=== PATIENT | female | born 1985 | race Caucasian/White ===

== ENCOUNTER 2024-11-17 18:01 | Emergency (ER) | payer OTHER, SELFPAY ==
--- NOTE | 2024-11-17 18:45 | RAD REPORT ---
EXAMINATION: CT HEAD WITHOUT CONTRAST CLINICAL INDICATION: Female, 39 years old.PAIN TECHNIQUE: Axial CT images from the skull base to the vertex without intravenous contrast. Coronal an d sagittal reformatted images were created from the data set. One or more of the following dose reduction techniques were used: Automated exposure control, adjustment of the mA and/or kV according to patient size, and/or iterative reconstruction. Unless otherwise specified, incidental findings do not require dedicated imaging follow-up. [id number]. COMPARISON: No prior exam. FINDINGS: INTRACRANIAL: No acute intracranial hemorrhage. No hydrocephalus. No mass effect or midline shift. No significant white matter disease. VASCULATURE: No visualized abnormalities in the arteries or dural venous sinuses. SCALP/SKULL: No significant soft tissue or osseous abnormalities. SINUSES: Mucous retention cysts in the maxillary sinuses. IMPRESSION: No acute intracranial abnormality.
[2024-11-17] MEDS ORDERED: dexAMETHasone 10 MG/ML VIAL ONE (19:57)
[2024-11-17] MEDS ORDERED: NA CHLORIDE 0.9% 1,000 ML ONE (19:58)
[2024-11-17] MEDS ORDERED: KETOROLAC 30 MG/ML INJ ONE (19:58)
[2024-11-17] MEDS ORDERED: DIPHENHYDRAMINE 50 MG/ML VIAL ONE (19:58)
[2024-11-17] MEDS ORDERED: METOCLOPRAMIDE 10 MG/2mL INJ ONE (19:58)
[2024-11-17] MEDS ORDERED: NA CHLORIDE 0.9% 50 ML ONE (19:59)
[2024-11-17 21:14] LABS: Anion Gap 9.8 mEq/L (5.0-15.0); Potassium 3.8 mEq/L (3.5-5.1)
[2024-11-17 22:00] LABS: Absolute Basophils 0.1 K/uL (0-0.5); Absolute Eosinophils 0.2 K/uL (0-0.5); Absolute Lymphocytes (CBC) 2.2 K/uL (0.7-4.9); Absolute Monocytes 0.3 K/uL (0.1-1.3); Absolute Neutrophil 4.3 K/uL (1.8-8.0); Basophils % 0.9 % (0-1.3); Eosinophils % 2.6 % (0-4.4); Hematocrit 38.6 % (36.0-45.0); Hemoglobin 12.9 g/dL (12.0-15.0); Lymphocytes % 31.6 % (15.3-44.8); MCH 30.8 pg (27.0-35.0); MCHC 33.3 g/dL (32.0-36.0); MCV 92.5 fL (80-100); MPV 7.6 fL (7.6-11.3); Monocytes % 3.8 % (3.3-12.3); Neutrophils % 61.1 % (41.7-73.7); Nucleated Red Blood Cells % 0.1 % (0-0); Platelets 321 thou/uL (152-406); RBC Red Blood Cell Count 4.18 M/uL (3.86-4.86); Red Cell Distribution Width 13.3 % (12.1-15.2)
--- NOTE | 2024-11-17 22:14 | EDPHYS ---
Physician Documentation [facility] Name: Ruth Gordon Age: 39 yrs Sex: Female : 1985 Arrival Date: 11/17/2024 Time: 18:01 Bed 8 Private MD: ED Physician Cecil Segundo HPI: 11/17 22:50 This 39 yrs old Female presents to ER via Ambulatory with complaints of Headache, Flu kb Symptoms. 22:50 Patient is a 39-year-old female who presents for headache that started 2 days ago. kb States she had cough, congestion, fever, body aches and chills last week, believed to be the flu. States all symptoms resolved except for the cough and then the headache presented. States the headache has been constant for 2 days. No aggravating or alleviating factors. No nausea or vomiting.. 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 Flu vaccine is not up to date. - Infectious Disease History:: Denies. - Social history:: Smoking status: Reported history of juuling and/or vaping. ROS: 22:49 Constitutional: As per HPI kb Exam: 22:49 Constitutional: This is a well developed, well nourished patient who is awake, alert, kb and in no acute distress. Head/Face: Normocephalic, atraumatic. Eyes: Pupils equal round and reactive to light, extra-ocular motions intact. Lids and lashes normal. Conjunctiva and sclera are non-icteric and not injected. Cornea within normal limits. Periorbital areas with no swelling, redness, or edema. ENT: Moist Mucous membranes Cardiovascular: Regular rate Respiratory: Respirations even and unlabored. No increased work of breathing. Talking in full sentences Skin: Warm, dry with normal turgor. Normal color. MS/ Extremity: Pulses equal, no cyanosis. Neurovascular intact. Full, normal range of motion. Neuro: Awake and alert, GCS 15, oriented to person, place, time, and situation. Vital Signs: 18:09 BP 186 / 98; Pulse 67; Resp 16; Temp 97.9(O); Pulse Ox 98% ; Weight 127.01 kg; Height 5 ap3 ft. 6 in. ; Pain 8/10; 20:48 BP 137 / 84; Pulse 60; Resp 17; Temp 98.3(O); Pulse Ox 99% on R/A; mt4 21:36 BP 122 / 70; Pulse 70; Resp 18; Pulse Ox 99% ; br2 21:38 BP 122 / 70; Pulse 57; Resp 18; Pulse Ox 97% on R/A; br2 22:24 BP 145 / 77; Pulse 54; Resp 18; Pulse Ox 98% ; br2 18:09 Body Mass Index 45.19 (127.01 kg, 167.64 cm) ap3 18:09 Pain Scale: Adult ap3 [place] Coma Score: 20:52 Eye Response: spontaneous(4). Motor Response: obeys commands(6). Verbal Response: mt4 oriented(5). Total: 15. 22:49 Eye Response: spontaneous(4). Motor Response: obeys commands(6). Verbal Response: kb oriented(5). Total: 15. MDM: 18:05 Medical Screening Exam initiated kb 22:49 Differential diagnosis: intracerebral hemorrhage, migraine, sinusitis. Data reviewed: kb vital signs, nurses notes. I considered the following discharge prescriptions or medication management in the emergency department I discussed and recommended Over The Counter medications, Antibiotics: At this time antibiotics are not recommended, Antivirals: At this time, antivirals are not recommended. Counseling: I had a detailed discussion with the patient and/or guardian regarding the historical points, exam findings, and any diagnostic results supporting the discharge/admit diagnosis, lab results, radiology results, the need for outpatient follow up, a family practitioner, to return to the emergency department if symptoms worsen or persist or if there are any questions or concerns that arise at home. Response to treatment: the patient's symptoms have resolved after treatment. 11/17 18:12 Order name: CBC with Diff; Complete Time: 22:12 kb 11/17 18:12 Order name: Basic Metabolic Panel; Complete Time: 21:16 kb 11/17 18:12 Order name: CT Head Brain wo Cont; Complete Time: 18:46 kb 11/17 18:12 Order name: IV Start; Complete Time: 21:24 kb 11/17 20:20 Order name: Labs - recollect needed: recollect green top ; Complete Time: 20:51 kmf 11/17 21:04 Order name: Labs - recollect needed: recollect purple top ; Complete Time: 21:39 kmf Administered Medications: 20:45 Drug: Ketorolac IVP 15 mg IVP once Route: IVP; Site: right antecubital; mt4 21:45 Follow up: Response: No adverse reaction br2 20:46 Drug: NS 0.9% IV 1000 ml IV at 1000 ml once; to be given as a bolus over 60 minutes mt4 Route: IV; Rate: 1000 ml; Site: right antecubital; 21:45 Follow up: Response: No adverse reaction; IV Status: Completed infusion; IV Intake: br2 1000ml 20:46 Drug: metoCLOPramide IVP 10 mg IVP once; over 1 to 2 minutes Route: IVP; Site: right mt4 antecubital; 21:45 Follow up: Response: No adverse reaction br2 20:46 Drug: diphenhydrAMINE IVP 12.5 mg IVP once Route: IVP; Site: right antecubital; mt4 21:14 Follow up: Response: No adverse reaction br2 20:48 Drug: Dexamethasone IM 10 mg IM once Route: IM; Site: right deltoid; mt4 21:15 Follow up: Response: No adverse reaction br2 Disposition: 11/18 08:56 Co-signature as Attending Physician, Cecil Segundo MD I reviewed the patient's care rt provided by the Advanced Practice Provider and agree with the diagnosis and treatment plan. Disposition Summary: 11/17/24 22:13 Discharge Ordered Notes: Location: Home kb Condition: Stable kb Diagnosis - Acute upper respiratory infection, unspecified kb - Headache kb Followup: kb - With: Emergency Department - When: As needed - Reason: Worsening of condition Followup: kb - With: Private Physician - When: 2 - 3 days - Reason: Recheck today's complaints, Continuance of care, Re-evaluation by your physician Discharge Instructions: - Discharge Summary Sheet kb - Upper Respiratory Infection, Adult, [id number] kb - General Headache Without Cause, [id number] kb Forms: - Medication Reconciliation Form kb - Antibiotic Education kb - Prescription Opioid Use kb - Patient Portal Instructions kb - Leadership Thank You Letter kb Signatures: Dispatcher [employer] EDMS Henry Muriel, MACHINE PIE MAKER-C MACHINE PIE MAKER-Ckb Jocelyne Orozco, RN RN ap3 Cecil Segundo MD MD rt Forrester, Kelsey [facility] Mariana Pickens, RN RN mt4 Sunitha Martinez RN br2 Corrections: (The following items were deleted from the chart) 11/17 18:13 18:12 Head Brain Wo Cont+CT.RAD.BRZ ordered. EDMS EDMS 18:13 18:13 CBC+H.LAB.BRZ ordered. EDMS EDMS 18:13 18:13 BASIC METABOLIC PANEL+C.LAB.BRZ ordered. EDMS EDMS 22:49 22:48 Constitutional: As per HPI Eyes: Negative for injury, pain, redness, and kb discharge, ENT: Negative for injury, pain, and discharge, Cardiovascular: Negative for chest pain, palpitations, and edema, Respiratory: Negative for shortness of breath, cough, wheezing, and pleuritic chest pain, MS/Extremity: Negative for injury and deformity, Skin: Negative for injury, rash, and discoloration, Neuro: Negative for headache, weakness, numbness, tingling, and seizure, kb
--- NOTE | 2024-11-17 22:14 | ER ---
Nurse's Notes [facility] Name: Ruth Gordon Age: 39 yrs Sex: Female : 1985 Arrival Date: 11/17/2024 Time: 18:01 Bed 8 Private MD: Diagnosis: Acute upper respiratory infection, unspecified;Headache Presentation: 11/17 18:09 Chief complaint: Patient states: she has had cough and congestion for approx one week ap3 but for the last two days she has had a headache that she can't get rid of. Coronavirus screen: At this time, the client does not indicate any symptoms associated with coronavirus-19. Ebola Screen: No symptoms or risks identified at this time. Initial Sepsis Screen: Does the patient meet any 2 criteria? No. Patient's initial sepsis screen is negative. Does the patient have a suspected source of infection? No. Patient's initial sepsis screen is negative. Risk Assessment: Do you want to hurt yourself or someone else? Patient reports no desire to harm self or others. Onset of symptoms was November 10, 2024. 18:09 Method Of Arrival: Ambulatory ap3 18:09 Acuity: ALY 3 ap3 Triage Assessment: 18:13 Headache History: Denies prior headaches. General: Appears uncomfortable, Behavior is ap3 cooperative, appropriate for age. Pain: Complains of pain in forehead Pain currently is 8 out of 10 on a pain scale. Pain began 2-3 days ago. Neuro: Level of Consciousness is awake, alert, obeys commands, Oriented to person, place, time, situation, Appropriate for age Gait is steady, Speech is normal, Facial symmetry appears normal, Reports headache. Cardiovascular: Patient's skin is warm and dry. Respiratory: Airway is patent Respiratory effort is even, unlabored, Respiratory pattern is regular, symmetrical. 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 Flu vaccine is not up to date. - Infectious Disease History:: Denies. - Social history:: Smoking status: Reported history of juuling and/or vaping. Screenin:14 [facility] ED Fall Risk Assessment (Adult) History of falling in the last 3 months, ap3 including since admission No falls in past 3 months (0 pts) Confusion or Disorientation No (0 pts) Intoxicated or Sedated No (0 pts) Impaired Gait No (0 pts) Mobility Assist Device Used No (0 pt) Altered Elimination No (0 pt) Score/Fall Risk Level 0 - 2 = Low Risk Oriented to surroundings, Maintained a safe environment, Educated pt \T\ family on fall prevention, incl call for assistance when getting out of bed, Assessed \T\ reinforced patient's understanding of fall precautions, Hourly rounding (assess needs \T\ fall precautionary measures) done, Used ambulatory aids as needed (educated on \T\ assisted with), Used gait belt as appropriate. Abuse screen: Denies threats or abuse. Nutritional screening: No deficits noted. Tuberculosis screening: No symptoms or risk factors identified. 20:52 Exposure risk/Travel Screening: None identified. mt4 Assessment: 20:52 General: Appears in no apparent distress. comfortable, obese, Behavior is calm, mt4 cooperative, appropriate for age. Pain: Complains of pain in face Pain currently is 6 out of 10 on a pain scale. Quality of pain is described as aching, Pain began 1 day ago. Neuro: Level of Consciousness is awake, alert, obeys commands, Oriented to person, place, time, situation, Appropriate for age Hand Or Machine Paster are equal bilaterally Moves all extremities. Gait is steady, Speech is normal, Facial symmetry appears normal. Cardiovascular: Capillary refill < 3 seconds. Respiratory: Reports cough that is productive, Airway is patent Respiratory effort is even, unlabored, Respiratory pattern is regular, symmetrical, Breath sounds are clear bilaterally. GI: Abdomen is non-distended, obese. : Denies burning with urination. Musculoskeletal: Range of motion: intact in all extremities. 22:24 Reassessment: Patient and/or family updated on plan of care and expected duration. Pain mt4 level reassessed. Patient states feeling better. Patient states symptoms have improved. General:. Vital Signs: 18:09 BP 186 / 98; Pulse 67; Resp 16; Temp 97.9(O); Pulse Ox 98% ; Weight 127.01 kg; Height 5 ap3 ft. 6 in. ; Pain 8/10; 20:48 BP 137 / 84; Pulse 60; Resp 17; Temp 98.3(O); Pulse Ox 99% on R/A; mt4 21:36 BP 122 / 70; Pulse 70; Resp 18; Pulse Ox 99% ; br2 21:38 BP 122 / 70; Pulse 57; Resp 18; Pulse Ox 97% on R/A; br2 22:24 BP 145 / 77; Pulse 54; Resp 18; Pulse Ox 98% ; br2 18:09 Body Mass Index 45.19 (127.01 kg, 167.64 cm) ap3 18:09 Pain Scale: Adult ap3 [place] Coma Score: 20:52 Eye Response: spontaneous(4). Motor Response: obeys commands(6). Verbal Response: mt4 oriented(5). Total: 15. 22:49 Eye Response: spontaneous(4). Motor Response: obeys commands(6). Verbal Response: kb oriented(5). Total: 15. ED Course: 18:05 Patient arrived in ED. al6 18:05 [facility] Fig[facility]ero[facility]C [facility] kb 18:05 Cecil Segundo MD is Attending Physician. kb 18:12 Triage completed. ap3 18:14 Arm band placed on right wrist. ap3 18:28 CT Head Brain wo Cont In Process Unspecified. EDMS 20:11 Mariana Pickens, RN is Primary Nurse. mt4 20:52 Patient has correct armband on for positive identification. Bed in low position. Call mt4 light in reach. Side rails up X 1. Provided Education on: labs and IV. Client placed on continuous cardiac and pulse oximetry monitoring. NIBP monitoring applied. youth nutritional monitor on. Pulse ox on. Door closed. Lights dimmed. Warm blanket given. Pillow given. Verbal reassurance given. Assisted to bathroom. 20:52 No provider procedures requiring assistance completed. Inserted saline lock: 22 gauge mt4 in right antecubital area, using aseptic technique. Blood collected. Flushed with 10 mL NS. 20:57 No apparent distress. Resting quietly. mt4 21:39 Lab(s) recollected, by me, sent to lab. rk3 22:30 IV discontinued, intact, bleeding controlled, No redness/swelling at site. Pressure br2 dressing applied. Administered Medications: 20:45 Drug: Ketorolac IVP 15 mg IVP once Route: IVP; Site: right antecubital; mt4 21:45 Follow up: Response: No adverse reaction br2 20:46 Drug: NS 0.9% IV 1000 ml IV at 1000 ml once; to be given as a bolus over 60 minutes mt4 Route: IV; Rate: 1000 ml; Site: right antecubital; 21:45 Follow up: Response: No adverse reaction; IV Status: Completed infusion; IV Intake: br2 1000ml 20:46 Drug: metoCLOPramide IVP 10 mg IVP once; over 1 to 2 minutes Route: IVP; Site: right mt4 antecubital; 21:45 Follow up: Response: No adverse reaction br2 20:46 Drug: diphenhydrAMINE IVP 12.5 mg IVP once Route: IVP; Site: right antecubital; mt4 21:14 Follow up: Response: No adverse reaction br2 20:48 Drug: Dexamethasone IM 10 mg IM once Route: IM; Site: right deltoid; mt4 21:15 Follow up: Response: No adverse reaction br2 Medication: 20:52 VIS not applicable for this client. mt4 Intake: 21:45 IV: 1000ml; Total: 1000ml. br2 Outcome: 22:13 Discharge ordered by kb 22:32 Patient left the ED. br2 Signatures: Dispatcher [employer] EDMS Muriel Figueroa, ANDREZ MAHANP-Jocelyne Shane RN RN ap3 Mariana Pickens RN RN mt4 Sunitha Martinez RN RN br2 Yu Boone al6 Funmi Siegel 3
[2024-11-18 07:39] VITALS: TEMP 98.3
[2024-11-18 07:43] VITALS: BP 145/77; O2SAT 98
== END 2024-11-17 22:32 | disposition home or self-care (01) ==
LOC: ER 18:01
DX: J06.9 Acute upper respiratory infection, unspecified (principal)
CPT/HCPCS: 36415; 70450; 80048; 85025; 96361; 96372; 96374; 96375; 99285; J1100; J1200; J2765; J7030